=== PATIENT | male | born 1980 | race Caucasian/White ===

== ENCOUNTER 2024-02-26 07:45 | Emergency (ER) | payer SELFPAY ==
[~2024-02-26] VITALS: Ht 165.1 cm; Wt 82.0 kg
[2024-02-26 07:49] VITALS: TEMP 98.1; O2SAT 100
[2024-02-26 08:44] LABS: BASOPHILS % 0.3 % (0.0-2.0); HEMATOCRIT. 44.3 % (42.0-52.0); HEMOGLOBIN. 14.3 g/dL (14.0-18.0); LYMPHOCYTES % 29.8 % (20.0-50.0); MEAN CORPUSCULAR HEMOGLOBIN 27.4 pg (28.0-32.0); MEAN CORPUSCULAR HGB CONC 32.2 g/dL (31.0-37.0); MEAN CORPUSCULAR VOLUME 85.1 fL (80.0-94.0); MEAN PLATELET VOLUME 7.7 fl (7.4-10.4); MONOCYTES % 9.1 % (2.0-8.0); NEUTROPHILS % 59.8 % (40.0-76.0); PLATELET 192 x1000/uL (130-400); RED CELL DISTRIBUTION WIDTH 14.6 % (11.6-14.6); WHITE BLOOD COUNT 4.9 x1000/uL (4.5-11.0)
[2024-02-26 09:00] LABS: CHLORIDE 111 mEq/L (98-107); SODIUM 143 mEq/L (136-145)
[2024-02-26 09:02] LABS: CALCIUM 8.3 mg/dL (8.7-10.4); CARBON DIOXIDE 21 mEq/L (21-32)
[2024-02-26 09:07] LABS: CREATININE 0.8 mg/dL (0.6-1.3); GLUCOSE 123 mg/dL (70-105); UREA NITROGEN BLOOD 7 mg/dL (9-23)
[2024-02-26 09:16] LABS: ETHANOL BLOOD 358 mg/dL (<10)
[2024-02-26 12:20] VITALS: BP 125/89; PULSE 84; RESP 17; O2SAT 99
== END 2024-02-26 12:21 | disposition home or self-care (01) ==
LOC: ER 07:53
DX: F10.129 Alcohol abuse with intoxication, unspecified (principal); Y90.8 Blood alcohol level of 240 mg/100 ml or more
CPT/HCPCS: 80048; 80320; 85025; 36415; 70450; 99284; Z7610; G0480